=== PATIENT | female | born 1965 ===

== ENCOUNTER → 2018-09-12 | Outpatient (CLI) | payer SELFPAY ==
[~2018-09-12] MED LIST: Bactrim Ds Tab1 EACH PO; CEPH500 PO; CYCL10 PO; DOXY100 PO; IBUP800 PO; OXYC5 PO; RXALBOI INH
[2018-09-16 15:06] LABS: HPV 16 Negative (Negative); HPV 18 Negative (Negative); HPV OTHER HR TYPES Negative (Negative)
== END | disposition home or self-care (01) ==
LOC: LAB SHORT 18:26 → LAB 18:26
PROVIDERS: Nurse Practitioner Women's Health
DX: Z12.4 Encounter for screening for malignant neoplasm of cervix (principal); Z91.89 Other specified personal risk factors, not elsewhere classified
CPT/HCPCS: 87624; G0123

== ENCOUNTER → 2018-09-19 | Outpatient (CLI) | payer SELFPAY | END | disposition home or self-care (01) | LOC: LAB SHORT 17:15 → LAB EV 17:15 | DX: L72.3 Sebaceous cyst (principal) | CPT/HCPCS: 87070; 87075; 87077; 87147; 87186; 87205 ==

== ENCOUNTER → 2018-10-31 | Outpatient (CLI) | payer SELFPAY | END | disposition home or self-care (01) | LOC: PLD 07:35 → LAB SHORT 07:35 | DX: N95.0 Postmenopausal bleeding (principal); N85.00 Endometrial hyperplasia, unspecified | CPT/HCPCS: 88305 ==

== ENCOUNTER → 2018-10-31 | Outpatient (CLI) | payer SELFPAY | END | disposition home or self-care (01) | LOC: LAB 12:10 → LAB SHORT 12:10 | DX: Z09 Encounter for follow-up examination after completed treatment for conditions other than malignant neoplasm (principal); Z86.14 Personal history of Methicillin resistant Staphylococcus aureus infection | CPT/HCPCS: 87081 ==

== ENCOUNTER → 2018-11-06 | Outpatient (CLI) | payer SELFPAY | END | disposition home or self-care (01) | LOC: LAB SHORT 17:18 → LAB 17:18 | DX: Z09 Encounter for follow-up examination after completed treatment for conditions other than malignant neoplasm (principal); Z86.14 Personal history of Methicillin resistant Staphylococcus aureus infection | CPT/HCPCS: 87081 ==

== ENCOUNTER 2023-11-09 17:51 | Inpatient (IN) | payer OTHER ==
[~2023-11-09] VITALS: Ht 167.6 cm; Wt 117.2 kg
[2023-11-09 18:39] LABS: BASOPHILS ABSOLUTE AUTO 0.05 K/mm3 (0.00-0.23); BASOPHILS PERCENT AUTO 1 % (0-2); EOSINOPHILS ABSOLUTE AUTO 0.32 K/mm3 (0.00-0.68); EOSINOPHILS PERCENT AUTO 3 % (0-6); Hematocrit 49.4 % (33.0-51.0); Hemoglobin 16.9 g/dL (11.5-16.0); IMMATURE GRAN ABSOLUTE AUTO 0.08 K/mm3 (0.00-0.10); IMMATURE GRAN PERCENT AUTO 1 % (0-1); LYMPHOCYTES ABSOLUTE AUTO 2.99 K/mm3 (0.84-5.20); LYMPHOCYTES PERCENT AUTO 29 % (21-46); MONOCYTES ABSOLUTE AUTO 0.58 K/mm3 (0.16-1.47); MONOCYTES PERCENT AUTO 6 % (4-13); Mean Corpuscular HGB 27.9 pg (26.0-34.0); Mean Corpuscular HGB Conc 34.2 g/dL (31.5-36.5); Mean Corpuscular Volume 82 fL (80-100); Mean Platelet Volume 9.9 fL (9.1-12.4); NEUTROPHILS ABSOLUTE AUTO 6.34 K/mm3 (1.96-9.15); NEUTROPHILS PERCENT AUTO 61 % (41-73); Platelet Count 274 K/mm3 (150-400); RDW Coefficient Variation 13.5 % (11.7-14.2); RDW Standard Deviation 39.7 fL (35.1-46.3); Red Blood Cell Count 6.06 M/mm3 (3.80-5.20); White Blood Cell Count 10.36 K/mm3 (4.00-11.30)
[2023-11-09 19:28] LABS: Albumin, Blood 3.5 g/dL (3.4-5.0); Albumin/Globulin Ratio 0.9 (0.8-1.8); Bilirubin, Total 0.5 mg/dL (0.1-1.0); Bun/Creatinine Ratio 14.5 (12.0-20.0); Calcium, Blood 9.2 mg/dL (8.5-10.1); Creatinine, Blood 0.83 mg/dL (0.40-1.00); Globulin, Blood 3.9 g/dL (2.2-4.0); Potassium, Blood 4.6 mmol/L (3.5-5.5); Total Protein, Blood 7.4 g/dL (6.4-8.2)
[2023-11-09] MEDS ORDERED: HydrALAZINE HCl 20 MG / ML 1ML Vial IV ONE (20:45)
[2023-11-09 22:09] LABS: Free Thyroxine 0.76 ng/dL (0.70-1.60); Magnesium, Blood 2.1 mg/dL (1.6-2.4); Thyroid Stimulating Hormone 2.38 uIU/mL (0.360-4.800)
[2023-11-09] MEDS ORDERED: Albuterol 2.5 MG/3 ML VIAL INH PRN (22:10)
[2023-11-09] MEDS ORDERED: Ondansetron HCl 2 MG / ML 2ML Vial IV PRN (22:35)
[2023-11-09] MEDS ORDERED: Acetaminophen 325 MG TABLET PO PRN (22:40)
[2023-11-09] MEDS ORDERED: Atropine Sulfate 0.1 MG/ML 10ML SYR IV PRN (22:50)
[2023-11-09] MEDS ORDERED: Albuterol 2.5 MG/3 ML VIAL INH ONE (23:00)
[2023-11-09 23:18] LABS: Adenovirus Not Detected (NOT DETECT); Coronavirus 229E Not Detected (NOT DETECT); Coronavirus HKU1 Not Detected (NOT DETECT); Coronavirus NL63 Not Detected (NOT DETECT); Coronavirus OC43 Not Detected (NOT DETECT); Human Metapneumovirus Not Detected (NOT DETECT); Human Rhinovirus/Enterovirus Not Detected (NOT DETECT); Influenza A/2009-H1 Not Detected (NOT DETECT); Influenza A/H1 Not Detected (NOT DETECT); Influenza A/H3 Not Detected (NOT DETECT); Influenza B Not Detected (NOT DETECT); Parainfluenza Virus 1 Not Detected (NOT DETECT); Parainfluenza Virus 2 Not Detected (NOT DETECT); Parainfluenza Virus 3 Not Detected (NOT DETECT); Parainfluenza Virus 4 Not Detected (NOT DETECT); Respiratory Syncytial Virus Not Detected (NOT DETECT); SARS-Cov-2 (COVID-19), BioFire Not Detected (NOT DETECT)
[2023-11-09 23:19] LABS: Bordetella pertussis Not Detected (NOT DETECT); Chlamydophila pneumoniae Not Detected (NOT DETECT); Mycoplasma pneumoniae Not Detected (NOT DETECT)
[2023-11-10] VITALS (32 sets, daily range): BP systolic 125–214; BP diastolic 63–138
--- NOTE | 2023-11-10 01:00 | NUR ---
SPOKE TO DR LEON AND NOTIFIED HIM OF PT ARRIVAL TO ICU 09 AND UPDATED HIM ON PT CONDITION.
--- NOTE | 2023-11-10 02:00 | NUR ---
DR LEON AT BEDSIDE.
[2023-11-10 04:11] LABS: CHOL/HDL RATIO 5.4; Cholesterol 201 mg/dL (50-200); HDL Cholesterol 37 mg/dL (>39); LDL/HDL RATIO 2.8; Low Density Lipoprotein Chol 103 mg/dL (0-110); Triglycerides 304 mg/dL (30-160); Very Low Density Lipoprot Chol 60 mg/dL (6-32)
[2023-11-10 05:28] LABS: U Amphetamine Screen Not Detected; U Barbituate Screen Not Detected; U Benzodiazapine Screen Not Detected; U Buprenorphine Screen Not Detected; U Cannabinoids Screen Not Detected; U Cocaine Screen Not Detected; U Methadone Screen Not Detected; U Methamphetamine Screen DETECTED; U Opiates Screen Not Detected; U Oxycodone Screen Not Detected; U Phencyclidine Screen Not Detected
--- NOTE | 2023-11-10 06:01 | NUR ---
SHIFT SUMMERY PT WAS ADMITTED TO ICU 09 FROM ER AT APPX 0100 TODAY. SHE HAS BEEN ALERT AND ORIENTED X4 W/NO NEUROLOGICAL DEFICITS. SHE WAS DISAGREABLE INITIALLY BUT BECAME MORE PLEASANT HAS THE SHIFT HAS PROGRESSED. SHE ADMITS TO SMOKING METH YESTERDAY AND HER U TOX WAS METH POSITIVE. 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 SHE HAS BEEN GIVEN 0.5MG OF ATROPINE 3 TIMES WHICH IS EFECTIVE FOR A LIMITED AMOUNT OF TIME. PT HAS ALSO BEEN QUITE HYPERTENSIVE, AWARE, WHICH PT STATES IS NORMAL FOR HER AND SHE DOES NOT TAKE MEDICATIONS FOR IT. SHE HAS BEEN NPO SINCE MIDNIGHT AND HAS A STIFF NECK LOADER CONSULT THIS MORNING. SHE HAS BEEN AFEBRILE. SHE HAS DENIED ANY CHEST PAIN/DISCOMFORT. SHE STATED A FEW MOMENTS AGO THAT SHE IS FEELING BETTER AND FEELS LIKE SHE HAS BEEN ABLE TO REST WELL. SHE IS ON ROOM AIR. SHE IS CONTINENT OF BOWEL AND BLADDER.
--- NOTE | 2023-11-10 07:50 | NUR ---
DR. ISIDRO HERE TO VIEW HEART RHYTHM STRIPS AND TO SEE PATIENT. DR. ISIDRO INFORMED THAT PATIENT APPEARS TO BE IN SECOND DEGREE, TYPE [address] ISIDRO INFORMED THAT ON WINDOW SHADE CUTTER AND MOUNTER ATROPINE WAS GIVEN 3 TIMES FOR HR IN 30S AND THAT HEART RHYTHM AT THAT TIME APPEARED TO BE SECOND DEGREE TYPE 2 TO WINDOW SHADE CUTTER AND MOUNTER RN. DR. ISIDRO INFORMED THAT PATIENT HAS BEEN HYPERTENSIVE WITH SBP 140S TO 190S. DR. ISIDRO INFORMED THAT PATIENT REPORTS LAST METH USE ON 11/08/23. DR. ISIDRO INFORMED THAT LIPIDS ELEVATED. DR. ISIDRO INFORMED THAT PATIENT STILL HAS SOME N/T TO R SIDE OF FACE AND TONGUE BUT THAT PATIENT REPORTS IT IS IMPROVED FROM YESTERDAY. DR. ISIDRO INFORMED THAT PATIENT DOES NOT TAKE ANY MEDICATIONS AT HOME. DR. ISIDRO STATED OKAY TO FEED PATIENT. NO OTHER ORDERS RECEIVED AT THIS TIME.
--- NOTE | 2023-11-10 08:00 | NUR ---
INITIAL ASSESSMENT PATIENT ALERT AND ORIENTED X 4, AFEBRILE. PATIENT DENIES PAIN. PATIENT REPORTS THAT SHE STILL HAS N/T IN RIGHT SIDE OF FACE AND TONGUE BUT THAT IT IS IMPROVED FROM YESTERDAY. PATIENT CALM AND COOPERATIVE AT THIS TIME. PATIENT CAN BE IRRITABLE AT TIMES. PATIENT SBA TO TOILET. PATIENT EDUCATED AND STATES SHE UNDERSTANDS TO CALL NURSE TO GET UP OOB TO TOILET. PATIENT HAS BEEN SATTING 90% AND GREATER ON RA. PATIENT REPORTS THAT SHE "HAS BEEN SICK AROUND THE LAST 3 WEEKS WITH COUGH AND CONGESTION". PATIENT REPORTS THAT SHE IS COUGHING UP SMALL AMOUNTS OF THICK, BROWN SPUTUM. PATIENT IN SECOND DEGREE, TYPE 1 THIS AM. HR IN THE 80S. SBP IN THE 160S AND DBP IN THE LOW 100S. GI WNL. LAST BM YESTERDAY. WNL. SKIN APPEARS WNL. IVS FLUSHED AND SALINE LOCKED. BED LOW, CALL LIGHT IN REACH. CARE CONTINUES.
[2023-11-10] MEDS ORDERED: Enoxaparin 40 MG/0.4 ML SYR SC SCH (09:00)
--- NOTE | 2023-11-10 09:17 | NUR ---
DR. LAL HERE TO SEE PATIENT. DR. LAL INFORMED THAT DR. ISIDRO HERE THIS AM. INFORMED THAT DR. ISIDRO STATED PATIENT IN SECONDARY DEGREE, TYPE 1 HB. INFORMED THAT PATIENT'S SBP 140S TO 190S. INFORMED THAT PATIENT REPORTS HER BLOOD PRESSURE WAS 200S OVER 118 WHEN WENT TO FIRE DEPARTMENT TO GET VITAL TAKEN BEFORE COMING TO HOSPITAL. INFORMED THAT PATIENT DOES NOT TAKE ANY MEDICATIONS AT HOME AND THAT PATIENT IS NOT ON ANY BLOOD PRESSURE MEDICATION HERE. INFORMED THAT PATIENT STILL HAS N/T TO RIGHT FACE AND TONGUE BUT REPORTS IT IS IMPROVED FROM YESTERDAY. INFORMED THAT PATIENT HAS EQUAL STRENGTH BILATERALLY AND THAT PUPILS SAME SIZE AND REACT BRISKLY TO LIGHT. INFORMED THAT PATIENT RECEIVED ATROPINE 3 TIMES ON MANAGER STERILE FOR HR IN THE 30S. INFORMED THAT PATIENT METH + AND STATES SHE LAST DID METH 2 DAYS AGO. INFORMED THAT DR. ISIDRO NOTES STATE "OPTIMIZE BP CONTROL" AND "HOLD ANY AV BLOCKING AGENTS". INFORMED THAT LIPIDS AND GLUCOSE HIGH THIS AM. ORDER FOR HEAD MRI RECEIVED. NO OTHER ORDERS RECEIVED AT THIS TIME.
[2023-11-10] MEDS ORDERED: ALPRAZolam 0.25 MG Tab PO PRN (11:40)
--- NOTE | 2023-11-10 11:40 | NUR ---
DR. LAL CALLED AND INFORMED THAT PATIENT COMPLAINING OF SHORTNESS OF BREATH AND ANXIETY. INFORMED THAT SPO2 91 TO 97%. INFORMED THAT BP 162/104. INFORMED THAT HR WAS IN 30S BUT NOW BACK TO 60S TO 70S AND PATIENT STILL FEELING SOB AND ANXIOUS. INFORMED THAT PATIENT HAS HAD MORE EPISODES OF BRADYCARDIA WHILE SLEEPING. INFORMED THAT DURING ADMIT HISTORY PATIENT STATED SHE HAS HISTORY OF SEIZURES. ORDER FOR PRN XANAX RECEIVED. NO OTHER ORDERS RECEIVED AT THIS TIME.
--- NOTE | 2023-11-10 12:13 | NUR ---
PATIENT'S SON, ADRIANNE, UPDATED ON STATUS.
--- NOTE | 2023-11-10 12:30 | NUR ---
PATIENT AFEBRILE. PATIENT ALTERNATING BETWEEN SR AND SECOND DEGREE TYPE 1 HB. HR 30S TO 80S. SBP IN THE 170S. PATIENT STATES THAT ANXIETY IS BETTER AFTER PRN XANAX BUT THAT STILL FEELS SHORT OF BREATH. PATIENT REMAINS SATTING GREATER THAN 92% ON RA. NO COMPLAINTS OF PAIN. BED LOW, CALL LIGHT IN REACH. CARE CONTINUES.
--- NOTE | 2023-11-10 13:55 | NUR ---
DR. LAL CALLED AND INFORMED THAT PATIENT HR DROPPED DOWN TO 29 BUT THEN CAME RIGHT BACK UP TO 30S-40S. INFORMED THAT MOM WAS AT BEDSIDE. INFORMED THAT PATIENT REPORTED THAT SHE FELT "SPACEY" AND MOM STATED THAT PATIENT CLOSED EYES AND HEAD WENT BACKWARD LIKE SHE WAS GOING TO FALL ASLEEP BUT THEN WOKE UP. INFORMED THAT TOOK BP RIGHT AFTER HR 29 AND SBP IN THE 170S. INFORMED THAT LONGEST PERIOD FROM QRS TO QRS WAS 3.13 SECONDS. INFORMED THAT PATIENT STATES SOB IS BETTER BUT THAT PATIENT DOES APPEAR MORE TIRED AFTER PRN XANAX. INFORMED THAT PATIENT IS DESATTING TO HIGH 80S AT TIMES AND THAT [address] LAL STATED TO CALL DR. ISIDRO AND CONTACT MRI TO SEE WHEN PATIENT CAN GET IN FOR MRI. DR. LAL INFORMED THAT MRI HAD BEEN CONTACTED AND THAT THEY ARE PLANNING TO BE ABLE TO GET PATIENT IN AT 1500.
--- NOTE | 2023-11-10 14:00 | NUR ---
DR. ISIDRO CALLED AND INFORMED OF EVERYTHING DR. LAL INFORMED OF IN PREVIOUS NOTE. ORDER TO GIVEN ATROPINE IF HR SUSTAINS LESS THAN 35 AND PATIENT SYMPTOMATIC. NO OTHER ORDERS RECEIVED AT THIS TIME.
--- NOTE | 2023-11-10 16:32 | NUR ---
DR. LAL INFORMED OF MRI RESULTS. NO ORDERS RECEIVED AT THIS TIME.
--- NOTE | 2023-11-10 16:40 | NUR ---
PATIENT AFEBRILE. NO COMPLAINTS OF PAIN. HR 30S TO 80S. SBP IN THE 170S. PATIENT ON 2 L NC TO KEEP SATS 90% AND GREATER WHEN DOZING OFF SATS DECREASE TO MID 80S. NO OTHER ACUTE CHANGES TO NOTE ON AT THIS TIME. MOTHER AT BEDSIDE. BED LOW, CALL LIGHT IN REACH. CARE CONTINUES.
[2023-11-10] MEDS ORDERED: HydrALAZINE HCl 10 MG Tab PO SCH (17:00)
--- NOTE | 2023-11-10 17:28 | NUR ---
PATIENT REFUSING TO WEAR SP02 PROBE OR NC.
--- NOTE | 2023-11-10 18:52 | NUR ---
SHIFT SUMMARY PATIENT REMAINED ALERT AND ORIENTED X 4, AFEBRILE. PATIENT HAD NO COMPLAINTS OF PAIN THIS SHIFT. PATIENT STATES FACE/ TONGUE N/T BETTER TODAY THAN YESTERDAY. PATIENT ANXIOUS WITH SOB ONCE THIS SHIFT AND RELIEVED WITH XANAX, BUT DID MAKE HER LETHARGIC. PATIENT RA TO 2 L NC TO KEEP SATS 90% AND GREATER. PATIENT SATS MID 80S TO HIGH 80S WHEN SLEEPING. PATIENT SB/SR/ SECOND DEGREE, TYPE 1 BLOCK THIS SHIFT. HR RANGED FROM 29 TO 80S. SBP RANGED FROM 120S TO 2-TEENS. DR. LAL ORDERED FOR SCHEDULED HYDRALAZINE BUT UNABLE TO GIVE BC OF HR PARAMETERS. GI WNL. WNL. SKIN WNL. IVS REMAIN SALINE LOCKED. PATIENT HAD ECHO AND HEAD MRI THIS SHIFT. PATIENT HAD COMPLETE BED BATH THIS SHIFT. PATIENT'S MOM HERE TO VISIT THIS SHIFT. PATIENT HAS NO COMPLAINTS AT THIS TIME. BED LOW, CALL LIGHT IN REACH. REPORT WILL BE GIVEN TO ASSUMING WARE CLEANER RN SHORTLY.
--- NOTE | 2023-11-10 22:13 | NUR ---
SPOKE TO TARYN SUPERINTENDENT MAINTENANCE RE PT HTN. ORDERS GIVEN TO ALLOW PASSIVE HYPERTENSION TO SYSTOLIC >220 W/OUT INTERVENTION, >220 NOTIFY PROVIDER. PT DENIES CHEST PAIN/PRESSURE AT THIS TIME. WILL CONTINUE TO MONITOR.
[2023-11-11] VITALS (15 sets, daily range): BP systolic 96–179; BP diastolic 72–112
[2023-11-11 03:48] LABS: Bun/Creatinine Ratio 21.2 (12.0-20.0); Calcium, Blood 8.7 mg/dL (8.5-10.1); Creatinine, Blood 0.76 mg/dL (0.40-1.00); Potassium, Blood 3.6 mmol/L (3.5-5.5)
--- NOTE | 2023-11-11 06:08 | NUR ---
PT HAS BEEN ALERT AND ORIENTED X4, AMBULATORY WITHIN ROOM W/MINIMAL ASSISTANCE. STRENGTH EQUAL BILATERALLY UPPER/LOWER EXTREMITIES. PT SB-SR ON THE LABORER CHEMICAL PROCESSING W/ 2ND DEGREE TYPE 1 HEART BLOCK CAUSING EXTREME BRADYCARDIA WHICH HAS BEEN SELF LIMITING. PT HAS BEEN HYPERTENSIVE AT TIMES, MD AWARE. PT HAS DENIED ANY CHEST PAIN/PRESSURE. SHE HAS HAD NO ACUTE CHANGES OVERNIGHT.
--- NOTE | 2023-11-11 07:19 | NUR ---
INITIAL ASSESSMENT PATIENT RESTING IN BED UPON ENTERING ROOM. PATIENT ALERT AND ORIENTED X 4, AFEBRILE. PATIENT DENIES PAIN OR DISCOMFORT. PATIENT STATES SHE STILL HAS SOME N/T IN RIGHT SIDE OF FACE AND TONGUE BUT THAT IT IS IMPROVED FROM LAST COUPLE OF DAYS. LUNGS CLEAR IN UPPER LOBES AND DIMINISHED IN LOWER LOBES. PATIENT SATTING 90% AND GREATER ON RA. PATIENT IN SB TO SR WITH PACS, HR 40S TO 60S THIS AM. SBP IN THE 160S. GI AND WNL. SKIN APPEARS WNL. IVS FLUSHED AND SALINE LOCKED. BED LOW, CALL LIGHT IN REACH. CARE CONTINUES.
[2023-11-11] MEDS ORDERED: Aspirin 325 MG Tab PO SCH (08:00)
[2023-11-11] MEDS ORDERED: HydrALAZINE HCl 10 MG Tab PO SCH (09:25)
--- NOTE | 2023-11-11 09:27 | NUR ---
DR. LAL HERE TO SEE PATIENT. DR. LAL UPDATED ON PATIENT STATUS. DR. LAL INFORMED THAT PATIENT'S BP LABILE DURING NIGHT. INFORMED THAT LOWEST SBP IN THE 90S AND HIGHEST SBP UP TO 212 ON CAR OILER. INFORMED THAT SBP 140S TO 160S THIS AM. INFORMED THAT HYDRALAZINE HAS BEEN HELD BECAUSE OF PARAMETER TO HOLD IF HR LESS THAN 60, PATIENT CONTINUES TO GO INTO HR 40S. INFORMED THAT PATIENT HAS BEEN UP IN ROOM SBA AND THAT PATIENT HAS DENIES FEELING LIGHTHEADED OR DIZZY WHILE AMBULATING. INFORMED THAT PATIENT HAD LOW HR OF 29 ON CAR OILER AND OF 28 THIS AM BUT WAS NOT SYMPTOMATIC. INFORMED THAT CAR OILER REPORTED PATIENT HAD 4 SECOND PAUSE ON CAR OILER. ORDER TO CHANGE STATUS TO MEDICAL FLOOR WITH TELE AND TO REMOVE HR HOLD PARAMETERS ON HYDRALAZINE AND TO GIVE NOW. NO OTHER ORDERS RECEIVED AT THIS TIME.
[2023-11-11] MEDS ORDERED: Lisinopril 5 MG Tab PO SCH (12:00)
[2023-11-11] MEDS ORDERED: Atorvastatin 40 MG Tab PO SCH (12:00)
--- NOTE | 2023-11-11 12:24 | NUR ---
PATIENT AFEBRILE. HR 50S TO 60S. SBP IN THE 150S. NO OTHER ACUTE CHANGES TO NOTE ON AT THIS TIME. NO COMPLAINTS. CARE CONTINUES.
--- NOTE | 2023-11-11 14:49 | NUR ---
SHIFT SUMMARY PATIENT REMAINED ALERT AND ORIENTED X 4, AFEBRILE. PATIENT REMAINED CALM, COOPERATIVE, PLEASANT. PATIENT HAD NO INSTANCES OF ANXIETY THIS SHIFT. PATIENT AMBULATING WELL IN ROOM; NURSE ASSIST FOR BRADYCARDIA. PATIENT HAS HAD NO COMPLAINTS OF PAIN THIS SHIFT. PATIENT HAS REMAINED SATTING 90% AND GREATER ON RA WHILE AWAKE OR ON 2 L NC WHILE SLEEPING FOR PERIODS OF APNEA. PATIENT HAS APPEARED TO BE IN SB TO SR WITH PACS AND OCCASIONAL PAUSES. DID NOT MEASURE SECOND DEGREE TYPE 1 BLOCK. HR RANGED FROM 40S TO 70S. SBP 120S TO 160S. GI WNL. PATIENT HAD GOOD APPETITE. PATIENT HAD ADEQUATE URINE OUTPUT. SKIN REMAINS WNL. PATIENT HAS BEEN REPOSITIONING SELF FREQUENTLY IN BED. PATIENT HAD CAROTID DUPLEX PERFORMED THIS SHIFT. PATIENT TO BE MOVED TO MEDICAL FLOOR SHORTLY.
--- NOTE | 2023-11-11 15:00 | NUR ---
PATIENT SUCCESSFULLY TRANSFERRED TO MEDICAL FLOOR, ROOM 330. ALL BELONGINGS SENT WITH PATIENT. FAMILY FOLLOWED BEHIND.
--- NOTE | 2023-11-11 18:19 | NUR ---
PATIENT TRANSFERRED FROM ICU9 TO 330, ALERT AND ORIENTED, PLEASANT TO CARE, USING CALL LIGHT FOR AMBULATION, BRADYCARDIA FOR TELEMETRY 1ST DEGREE BBB, CLARIFIED WITH DR LAL IF HEART RATE SUSTAINS AT 35 OR UNDER USE ATROPINE ORDER. PATIENT ASYSMTPOMATIC SINCE ON FLOOR, HEART RATE HAS GONE LOW 35 BUT NOT SUSTAINED THERE. FRIEND VISITING NOW. GRINDING AND SPRAYING SUPERVISOR NOTIFIED OF PATIENTS HEART RATE. VSS, 97% ON RA, NO SOB WHEN AMBULATING TO BR. CALL LIGHT WITH IN REACH, WILL RELAY TO PM RN
--- NOTE | 2023-11-11 19:39 | NUR ---
PATIENT REPORTS RS FACIAL N/T. HAND BASEBALL SEWER JAN NOTIFIED AND DID ASSESSMEN PATIENT HAD SAME S/SX ON ADMIT. PUPILS EQUAL, CMM OPERATOR STRONG EQUAL. PUSH/PULL STRONG, SLIGHT FACE DROOP WHEN SPEAKING. TELE MONITOR NSR 77. HOSPITALIST MATTY ARIZA CALLED AND REPORTS FAMILIAR WITH PATIENT AND REPORTS TO CONTINUE TO MONITOR.
--- NOTE | 2023-11-12 01:46 | NUR ---
FRAMING AND HANGING REPORTS HR DOWN TO 30'S FOR A FEW SECONDS WITH SECOND DEGREE AND BACK INTO THE 60'S. WCTM.
[2023-11-12 02:41] VITALS: BP 159/82
--- NOTE | 2023-11-12 03:10 | NUR ---
ASSUMED CARE OF PT. REPORT RECEIVED FROM JEANNE MITCHELL. PT IN BED WITH EYES SHUT, RR E/U. NO APPARENT DISTRESS. CALL LIGHT IN REACH, BED LOW POSITION AND ALARM SET.
--- NOTE | 2023-11-12 06:40 | NUR ---
SHIFT SUMMARY: ASSUMED CARE OF PT LAT THIS EVENING. NO REPORTS FROM TELE. PT APPEARED TO HAVE SLEPT THROUGH THE NIGHT. PT HAD NO COMPLAINTS THROUGH THE NIGHT. RR E/U. NO APPARENT DISTRESS.
[2023-11-12 07:48] VITALS: BP 146/79
--- NOTE | 2023-11-12 08:10 | NUR ---
tele alerted this rn, 3 events. pause >[address] sales notified, charge manager notified. pt is non symptomatic. plan is to transfer to pcu for monitoring.
[2023-11-12] MEDS ORDERED: HydrALAZINE HCl 25 MG Tab PO SCH (08:30)
[2023-11-12 08:37] VITALS: BP 140/77
--- NOTE | 2023-11-12 10:21 | NUR ---
TRANSFER/AMA: PT TRANSFERED TO PCU APPROX 0830. PT IS A&Ox4, STATES SHE ISN'T DOING ANYTHING UNTIL SHE SHOWERS, PT ASSISTED W/THIS REQUEST. PT DENIES SOB OR CP, O2 SATS >93% ON RA, SB/SR ON MONITOR W/RATE 50s-60s, NO PAUSES SINCE ARRIVAL TO PCU. PROVIDER ENTERS ROOM TO DISCUSS PLAN OF CARE W/PT, PT DECIDES TO LEAVE AMA, RISK OF LEAVING AMA REVIEWED W/PT AND PT STATES UNDERSTANDING. ALL IV ACCESS DC'd WNL, PT DRESSES SELF AND AMBULATES FROM UNIT.
== END 2023-11-12 10:17 | disposition left against medical advice (07) | DRG 308 ==
LOC: ER 17:51 → ICUE 17:52 → PCU 11-10 15:44 → ICUE 11-10 19:12 → MEDS 11-11 15:08 → PCU 11-12 08:33
PROVIDERS: Emergency Medicine; Internal Medicine; Nurse Practitioner Acute Care; ADMIT Internal Medicine
DX: I44.1 Atrioventricular block, second degree (principal); I63.81 Other cerebral infarction due to occlusion or stenosis of small artery; I16.1 Hypertensive emergency; F15.13 Other stimulant abuse with withdrawal; Z68.41 Body mass index [BMI] 40.0-44.9, adult; I16.0 Hypertensive urgency; E78.5 Hyperlipidemia, unspecified; F41.9 Anxiety disorder, unspecified; F31.9 Bipolar disorder, unspecified; R73.9 Hyperglycemia, unspecified; E66.01 Morbid (severe) obesity due to excess calories; F17.210 Nicotine dependence, cigarettes, uncomplicated; Z88.5 Allergy status to narcotic agent; Z88.8 Allergy status to other drugs, medicaments and biological substances; Z71.51 Drug abuse counseling and surveillance of drug abuser; Z53.29 Procedure and treatment not carried out because of patient's decision for other reasons; K42.9 Umbilical hernia without obstruction or gangrene; Z98.890 Other specified postprocedural states; Z90.49 Acquired absence of other specified parts of digestive tract
CPT/HCPCS: 0202U; 36415; 70450; 70551; 80048; 80053; 80061; 82947; 83036; 83735; 84439; 84443; 84484; 85025; 93005; 93010; 93880; 94640; 94664; 96372; 96374; 96375; 96376; 99285-25; A9270; C8929; G0378; J0360; J0461; J1650; Q9957